=== PATIENT | male | born 1930 | race Caucasian/White ===

== ENCOUNTER 2016-11-28 12:02 | Inpatient (IN) | payer BC ==
--- NOTE | ~2016-11-28 | HP ---
History And Physical [facility] [place]. [address] NAME: ASHLYN FAN : 31 STATUS : ADM IN PAT#: [id number] AGE: 86 ADM/REG DATE : 11/28/16 MR#: [id number] REPORT SERV DATE: 11/28/16 DICTATED BY: ETTA MEDINA DATE: 11/28/16 REPORT STATUS : Draft TRANSCRIBED BY: MODL DATE: 11/28/16 DATE OF ADMISSION: 11/28/2016 CHIEF COMPLAINT: Confusion, weakness, arthralgia, myalgia that is going on for more than one week. HISTORY OF PRESENT ILLNESS: This is a very pleasant 86-year-old gentleman, patient of Dr. Peter Weller, his primary care provider, who has been diagnosed about one year ago by his primary care provider, at that time, Dr. Mary Jane Chahal, with Parkinson disease and dementia. He also has a history of hypertension, history of BPH, hyperlipidemia, degenerative joint disease, osteoarthritis who has been presenting today accompanied by his to [facility] with progressive weakness, encephalopathy. It is important to note that patient has a progressive deterioration of functional status over the last year. He does have dementia which has progressively worse as well as Parkinson disease, but he has been able to get around the house and move despite his unsteady gait; however, for about one week or so, patient has become much more progressively worse, much more weaker, very hard to mobilize, in fact, more confused than usual. He went with his on Monday to [facility]. At that time, he had a complete workup including a CT of the brain which essentially was negative. In the emergency room, they wanted patient to be admitted; however, the wanted to take the patient home to follow up with his primary care provider today. However, today he woke up and he was so weak that actually slid out of the bed and as a result the family needed to call the paramedics to bring him to [facility]. The patient is fairly confused. He is alert and oriented x1. He actually denies any complaints of chest pain or shortness of breath. No PND or orthopnea. No fever. No nausea, vomiting, but he complains of joint pain. He did not have any hematemesis, melena, hematochezia. No increased urinary frequency, urgency. No seizure-like activity. No other complaints. Patient has been evaluated in the emergency room and after speaking with Neurology, Hospitalist Service has admitted the patient for further evaluation and treatment. It is important also to note that despite the fact that patient has been diagnosed with Parkinson disease and dementia, the treatment has been provided by his primary care provider. He has never seen a neurologist before. PAST MEDICAL HISTORY: So again, past medical history is significant for Parkinson disease, dementia, hypertension, BPH, coronary artery disease, status post prior PTCA and stent, hyperlipidemia, degenerative joint disease, osteoarthritis. PAST SURGICAL HISTORY: Include bilateral total knee replacement. SOCIAL HISTORY: Denies tobacco. Alcohol socially. No IV drugs. ALLERGIES: HE IS ALLERGIC TO CODEINE. FAMILY HISTORY: Significant for heart disease and cancer. MEDICATIONS: At home, Lotensin, Sinemet, Aricept, Cardura, iron sulfate, alprazolam, Advil, Zocor, and Maxzide. History And Physical [address] [address] NAME: ASHLYN FAN : 31 STATUS : ADM IN [facility]#: [id number] AGE: 86 ADM/REG DATE : 11/28/16 MR#: [id number] REPORT SERV DATE: 11/28/16 DICTATED BY: ETTA MEDINA DATE: 11/28/16 REPORT STATUS : Draft TRANSCRIBED BY: TEZ DATE: 11/28/16 REVIEW OF SYSTEMS: A 14-point review of systems has been obtained and pertinent positive has been listed into the history of present illness, otherwise negative except those underlying above. PHYSICAL EXAMINATION: VITAL SIGNS: Currently, patient is afebrile. Blood pressure 178/107, heart rate 92, respiratory rate 18, saturating 97% on room air. GENERAL: He is a well-developed, well-nourished gentleman, in no acute distress. Very confused. He is alert and oriented x1. He does follow some commands. HEENT: Show pupils equal, round, reactive to light. Extraocular movements intact. No JVD. No lymphadenopathy. No thyromegaly appreciated. CHEST: Shows bilateral air entry. Clear anteroposterior. Decreased breath sounds bibasilarly. No wheezes, crackles, or rhonchi appreciated. CARDIOVASCULAR: He is regular rate and rhythm. S1, S2 positive. No S3, no S4. No murmurs, rubs, or gallops appreciated. ABDOMEN: Soft with positive bowel sounds. Nontender. No guarding. No rebound. EXTREMITIES: No clubbing, cyanosis, or edema. NEUROLOGY: Patient is alert and oriented x1. He has generalized weakness. He has tremor. He does follow some commands. Cranial nerves appear intact. Gait could not be assessed. LABORATORY DATA: Labs from today include sodium 135, potassium 4, chloride 102, CO2 of 26, BUN 5, creatinine 1.41, glucose is 104. His total bilirubin is 0.7, alkaline phosphatase 87, ALT 41, AST 26. His white count is 6.4, hemoglobin 10.6, hematocrit 31.3, platelets are 228. His INR is 1.4. His UA has been negative. The chest x-ray, portable, performed in the emergency room shows no acute cardiopulmonary abnormalities and EKG performed in the emergency room shows sinus rhythm with sinus arrhythmia and first-degree AV block, otherwise normal EKG. ASSESSMENT: This is a very pleasant, 86-year-old gentleman with: 1. Encephalopathy. 2. History of Parkinson disease and dementia. 3. Mild acute kidney injury. 4. Hypertension. 5. History of benign prostatic hypertrophy. 6. History of coronary artery disease, status post prior PTCA and stent. 7. Hyperlipidemia. PLAN: 1. Patient is going to be admitted to Hospitalist Service regarding his encephalopathy. I am going to order an MRI/MRA of the brain, place him on an aspirin. We are going to check vitamin B12 and folate, TSH and a free T4. We are going to check hemoglobin A1c. We are going to check an ammonia level. We are going to consult Dr. Pack from Neurology Service for further recommendation frequent neuro checks as well. Continue his Sinemet as well as his Aricept and p.r.n. Ativan as needed. 2. Hypertension. I am going to hold his Lotensin as well as his Maxzide today. Continue his hydralazine and provide p.r.n. hydralazine as needed. History And Physical [address] [address] NAME: ASHLYN FAN : 31 STATUS : ADM IN [facility]#: [id number] AGE: 86 ADM/REG DATE : 11/28/16 MR#: [id number] REPORT SERV DATE: 11/28/16 DICTATED BY: ETTA MEDINA DATE: 11/28/16 REPORT STATUS : Draft TRANSCRIBED BY: MODAutumn DATE: 11/28/16 3. Mild acute kidney injury. We are going to provide IV fluids. Strict I's and O's, strict daily weights. We will check spot urine for sodium, creatinine, osmolarity. We are going to check a renal ultrasound and follow the labs in the morning. 4. History of BPH. We are going to continue his home medications. 5. History of hyperlipidemia. We will continue his home medications and check a fasting lipid profile. We are going to provide reasonable pain and nausea control as well as GI and DVT prophylaxis. That has been discussed extensively with the patient. All the questions have been answered in full. Further workup and recommendation pending above. It is worthwhile to note that the patient is going to be followed by Hospitalist Service. The patient wishes to remain a full code according to patient wishes prior stated. CF/TEZ Etta Medina M.D. / [id number] CC: Peter Prado M.D.
--- NOTE | ~2016-11-28 | CN ---
Consultation Report [facility] [address] [place]. [address] NAME: ASHLYN FAN : 32 STATUS : ADM IN PAT#: [id number] AGE: 86 ADM/REG DATE : 11/28/16 MR#: [id number] REPORT SERV DATE: 11/30/16 DICTATED BY: ANGELI HERRERA DATE: 11/30/16 REPORT STATUS : Draft TRANSCRIBED BY: MODL DATE: 11/30/16 NEUROLOGY CONSULTATION DATE OF CONSULTATION: 11/30/2016 PRIMARY CARE PHYSICIANS: Peter Weller M.D. and Tacho Bang M.D. REASON FOR CONSULTATION: Progressive weakness, encephalopathy, and Parkinson disease. HOSPITALIST: Chavez Mosqueda M.D. HISTORY OF PRESENT ILLNESS: The patient is an 86-year-old male who was diagnosed with Parkinson disease and probable dementia by Dr. Bang approximately a year and a half ago. He was started on carbidopa/levodopa 25/100 mg as a trial dose and seemed to tolerate it well. The patient has struggled with bradykinesia, bradyphrenia, hypophonia, and imbalance. However, he seemed to get along fairly well until approximately a week ago. According to the patient's , his condition plummeted rapidly. He started to get very agitated and confused and was unable to even stand. In fact, the patient's stated that one day he just slid out of his chair to the floor. This concerned her greatly, so she brought him to the hospital for further evaluation and treatment. The patient was diagnosed with a urinary tract infection and has been placed on antibiotics. It was also noted that the patient had difficulty swallowing and underwent a swallow study test today. The patient has been agitated. According to the , he does have at least one glass of wine on a daily basis and has done so for many years. He has not had any alcoholic beverages since admission, and this is day 3. PAST MEDICAL HISTORY: Parkinson disease; probable dementia; hypertension; hyperlipidemia; coronary artery disease, status post stent placement; degenerative joint disease; osteoarthritis. PAST SURGICAL HISTORY: Bilateral total knee replacements and lumbar surgery. HOME MEDICATION LIST: Consists of Lotensin 40 mg daily, Sinemet 25/100 mg daily, Aricept 5 mg daily, Cardura 4 mg daily, ferrous sulfate 325 mg daily, hydralazine 50 mg twice a day, Advil p.r.n., Zocor 40 mg daily, and Maxzide 37.5/25 mg daily. ALLERGIES: CODEINE. SOCIAL HISTORY: The patient is . He lives at home with his . He is retired. He quit smoking 25 years ago. He has a glass of wine every day. He does not use illicit drugs. FAMILY HISTORY: His mother had breast cancer. His father of coronary artery disease. Consultation Report [address] [place]. [address] NAME: ASHLYN FAN : 32 STATUS : ADM IN PAT#: [id number] AGE: 86 ADM/REG DATE : 11/28/16 MR#: [id number] REPORT SERV DATE: 11/30/16 DICTATED BY: ANGELI HERRERA DATE: 11/30/16 REPORT STATUS : Draft TRANSCRIBED BY: TEZ DATE: 11/30/16 He has one brother who had colon cancer. He has one daughter who has colon cancer and liver cancer and a son with colon cancer. REVIEW OF SYSTEMS: For pertinent positives, please refer to HPI. PHYSICAL EXAMINATION: GENERAL: The patient is an 86-year-old male who is slightly febrile with a temperature of 99 degrees, heart rate 94, respiratory rate 16, O2 saturations on 2 L nasal cannula 95%, and blood pressure is 180/91. The patient stands 6 feet 1 inch tall and weighs 101 kg. NEUROLOGICAL: He is somewhat drowsy but will arouse to verbal stimuli. Pupils are 2 mm. PERRLA. Cranial nerves appear to be intact. He is hypophonic and hard of hearing. He will follow a few simple commands but communication is poor at this time. He does have a rest tremor. Does have slight myoclonus and asterixis. Rigidity in the upper extremities. Some cogwheeling noted. He is also rigid in the lower extremities. The patient is unable to get up and ambulate at this time. He is very weak. He is a total assist. NECK: No carotid bruits, JVD, or thyromegaly. CHEST: Lung sounds relatively clear. Diminished in the bases. CARDIAC: Regular rate and rhythm. LABORATORY DATA: CBC is normal. BMP normal. Sedimentation rate is 100. A1c 5.6. Ammonia 25. INR 1.4. MRI of the brain shows no acute changes. ASSESSMENT/PLAN: 1. Parkinson disease. The patient's Sinemet will be increased to t.i.d. dosing. He will be taking the 25/100 mg at 8:00 a.m., 12 noon, and 4:00 p.m. He will be taking that with food but not food containing protein. PT, OT, and Speech Therapy have been consulted. We are waiting on his swallow study tests results. The patient will be either going to rehab or hospice. 2. Dementia. Supportive care will be given to the family and the patient. We will check further lab work. 3. Daily alcohol use. The patient could possibly be starting to go through withdrawal. I will institute the CIWA protocol. He will be placed on thiamine 100 mg daily plus folate 1 mg daily. Thank you again for including us in consultation. We will follow with you. DARIEL/TEZ Angeli Herrera DNP, [facility]- / [id number] Consultation Report [address] [address] NAME: ASHLYN FAN : 32 STATUS : ADM IN [facility]#: [id number] AGE: 86 ADM/REG DATE : 11/28/16 MR#: [id number] REPORT SERV DATE: 11/30/16 DICTATED BY: ANGELI HERRERA DATE: 11/30/16 REPORT STATUS : Draft TRANSCRIBED BY: TEZ DATE: 11/30/16 CC: MD Peter Oneil M.D.
--- NOTE | ~2016-11-28 | DS ---
Discharge Summary [facility] [address] [place]. [address] NAME: ASHLYN FAN : 32 STATUS : DIS IN PAT#: [id number] AGE: 86 ADM/REG DATE : 11/28/16 MR#: [id number] REPORT SERV DATE: 12/02/16 DICTATED BY: SONJA BOYLE DATE: 12/02/16 REPORT STATUS : Draft TRANSCRIBED BY: MODL DATE: 12/02/16 ADMISSION DATE: 11/28/2016 DISCHARGE DATE: 12/02/2016 Mr. Fan is an 86-year-old gentleman with a history of Parkinson disease, hypertension, who was brought out to the emergency room by his with a complaint of confusion, weakness, arthralgia, and myalgia. For further details, please refer to H and P dictated by Dr. Will on 11/28/2016. HOSPITAL COURSE: Upon presentation to the hospital, the patient was diagnosed with encephalopathy, admitted on the Hospitalist Service for further management. Given his presenting complaints, Neurology was also consulted. For further details, please refer to consultation note dictated by Angeli Soliman on 11/30/2016. It was noted that the patient for his Parkinson disease had not followed up with Neurology, and he was on carbidopa and levodopa at suboptimal doses. The patient was placed on optimal doses by Neurology with significant improvement. Prior to initiation of therapy, the patient had a complete infectious workup which came back negative. He had brain imaging which noted no acute abnormality. Status post placed the patient on the right dose of carbidopa and levodopa, the patient's symptoms significantly improved. However, per goals of care, given the prognosis of the disease, the patient's opted to place the patient in hospice. Hospice service has been consulted. The patient has been accepted to hospice and will be transitioning to hospice today. Plan has been discussed with the who voices understanding and is agreeable with this plan. DISCHARGE DIAGNOSES: 1. Parkinson's disease. 2. Dementia with Lewy body. 3. Hypertension. 4. Acute kidney injury. 5. Benign prostatic hypertrophy. 6. Obstructive sleep apneas. 7. Coronary artery disease. Medication reconciliation and further management will be deferred to hospice service per hospice service policy. IMAGIN. A CT brain without contrast. Impression:. a. No acute intracranial abnormality identified at this time. b. Moderate cortical volume loss and findings compatible with mild to moderate chronic deep white matter ischemic changes. 2. MRI brain. Impression:. a. Stable moderate to marked global atrophy. No acute infarct or bleed. There is ventriculomegaly. No shift. 3. Renal ultrasound. Impression:. a. Negative renal ultrasound. Discharge Summary [address] [place]. [address] NAME: ASHLYN FAN : 32 STATUS : DIS IN PAT#: [id number] AGE: 86 ADM/REG DATE : 11/28/16 MR#: [id number] REPORT SERV DATE: 12/02/16 DICTATED BY: SONJA BOYLE DATE: 12/02/16 REPORT STATUS : Draft TRANSCRIBED BY: TEZ DATE: 12/02/16 4. Swallowing study. Impression:. a. Vallecular pooling prior to swallows. b. Oral vallecular and piriform sinus residue following swallows. c. No evidence of aspiration or penetration during exam. DISPOSITION: The patient will be discharged to hospice. Greater than 30 minutes was spent providing counseling, coordinating discharge. DICTATED BY: MD PADMINI Oneil/TEZ Sonja Boyle MD / [id number] CC: MD Peter Oneil M.D.
[2016-11-28 11:30] LABS: BASOPHILS 0.2 %; BASOPHILS ABSOLUTE 0.01 10/3/uL (0.0-0.16); EOSINOPHILS 0.8 %; EOSINOPHILS ABSOLUTE 0.05 10/3/uL (0.0-0.53); ER CBC TAT 0 Hrs 05 Mins; HEMATOCRIT 31.3 % (40.0-51.0); HEMOGLOBIN 10.6 g/dL (13.6-17.8); IMMATURE GRANULOCYTES 0.3 %; IMMATURE GRANULOCYTES ABSOLUTE 0.02 10/3/uL (0.0-0.11); LYMPHOCYTES 15.7 %; MEAN CORPUS HGB CONC 33.9 g/dL (32.0-36.0); MEAN CORPUSCULAR HEMOGLOB 31.8 pg (26.0-34.0); MEAN PLATELET VOLUME 9.7 fL (9.2-13.0); MONOCYTES 12.1 %; MONOCYTES ABSOLUTE 0.77 10/3/uL (0.21-1.20); NEUTROPHILS 70.9 %; NEUTROPHILS ABSOLUTE 4.51 10/3/uL (2.02-8.40); PLATELET COUNT 228 10/3/uL (150-400); RBC DISTRIBUTION WIDTH 12.9 % (12.0-16.0); RED CELL COUNT 3.33 10/6/uL (4.7-6.1); WHITE BLOOD CELLS 6.4 10/3/uL (4.5-10.5)
[2016-11-28 11:33] LABS: MANUAL DIFF NO %
[2016-11-28 11:37] LABS: INTERNATIONAL NORMAL RATI 1.4 UNITS (-); PROTIME (NOT ORD) 16.6 SEC (12.0-14.5)
[2016-11-28 11:38] LABS: PARTIAL THROMBO TIME 34.7 SEC (22.5-37.2)
[2016-11-28 11:47] LABS: CHLORIDE, SERUM 102 MMOL/L (96-112); CO2 (CARBON DIOXIDE) 26 MMOL/L (24-34); CREATININE 1.41 MG/DL (0.70-1.30); GFR AFRICAN AMERICAN 52 ML/MIN (>=60); GFR NON AFRICAN AMERICAN 45 ML/MIN (>=60); GLUCOSE, SERUM 104 MG/DL (60-99); SGOT(AST) 26 U/L (5-40); SGPT(ALT) 41 U/L (5-65); SODIUM, SERUM 135 MMOL/L (135-148); TOTAL BILIRUBIN 0.7 MG/DL (0-1.2)
[2016-11-28 11:48] LABS: A/G RATIO 0.8 (0.7-1.9); ALKALINE PHOSPHATASE 87 U/L (45-117); BUN (BLOOD UREA NITROGEN) 50 MG/DL (6-23)
[~2016-11-28 12:02] MED LIST: ADVIL PM1 CAP PO; APRES50 PO; ARICEPT5 PO; CARDU4 PO; FERROUS SULF325 M1 PO; LOTE40 PO; MAX25 PO; SIN25 PO; ZOCOR40 PO
[2016-11-28 12:51] LABS: ASCORBIC ACID (UR NOT ORDER) 20 (NEG); BILIRUBIN, URINE NEGATIVE (NEG); ER URINALYSIS TAT 0 Hrs 09 Mins; KETONE, URINE NEGATIVE (NEG); LEUKOCYTE ESTERASE(NOT OR NEG (NEG); NITRITE (URINE) NEG (NEG); WBC (NOT ORDERED) (RFLEX) 1 (0-5)
[2016-11-28 18:34] LABS: CREATININE, URINE 88.8 MG/DL
[2016-11-28 19:00] LABS: FERRITIN 304 NG/ML (26-388); IRON BINDING CAPACITY 179 MCG/DL (250-450)
[2016-11-28 19:01] LABS: FOLATE 42.6 NG/ML (>5.2)
[2016-11-28 19:08] LABS: PROCALCITONIN 0.05 ng/mL (<0.5)
[2016-11-28 19:31] LABS: CPK 91 U/L (0-200)
[2016-11-28 19:32] LABS: CK-MB 2.4 NG/ML; TROPONIN I 0.06 NG/ML (<0.05)
[2016-11-28 20:17] LABS: B NATRIURETIC PEPTIDE (BNP) 197.6 PG/ML (< 100.0)
[2016-11-29 03:23] LABS: BASOPHILS 0.1 %; BASOPHILS ABSOLUTE 0.01 10/3/uL (0.0-0.16); EOSINOPHILS ABSOLUTE 0.07 10/3/uL (0.0-0.53); HEMOGLOBIN 9.9 g/dL (13.6-17.8); IMMATURE GRANULOCYTES 0.1 %; IMMATURE GRANULOCYTES ABSOLUTE 0.01 10/3/uL (0.0-0.11); LYMPHOCYTES 16.9 %; LYMPHOCYTES ABSOLUTE 1.13 10/3/uL (0.67-4.30); MEAN CORPUS HGB CONC 34.1 g/dL (32.0-36.0); MEAN CORPUSCULAR HEMOGLOB 32.6 pg (26.0-34.0); MEAN CORPUSCULAR VOLUME 95.4 fL (80-100); MEAN PLATELET VOLUME 9.8 fL (9.2-13.0); MONOCYTES 12.5 %; MONOCYTES ABSOLUTE 0.84 10/3/uL (0.21-1.20); NEUTROPHILS 69.4 %; NEUTROPHILS ABSOLUTE 4.64 10/3/uL (2.02-8.40); PLATELET COUNT 222 10/3/uL (150-400); RBC DISTRIBUTION WIDTH 12.6 % (12.0-16.0); RED CELL COUNT 3.04 10/6/uL (4.7-6.1); WHITE BLOOD CELLS 6.7 10/3/uL (4.5-10.5)
[2016-11-29 03:24] LABS: MANUAL DIFF NO %
[2016-11-29 03:41] LABS: A/G RATIO 0.7 (0.7-1.9); ALBUMIN 2.5 G/DL (3.5-5.0); CALCIUM, SERUM 8.4 MG/DL (8.5-10.4); CHLORIDE, SERUM 102 MMOL/L (96-112); CO2 (CARBON DIOXIDE) 26 MMOL/L (24-34); CPK 79 U/L (0-200); CREATININE 1.14 MG/DL (0.70-1.30); GFR AFRICAN AMERICAN 68 ML/MIN (>=60); GFR NON AFRICAN AMERICAN 58 ML/MIN (>=60); GLOBULIN 3.5 G/DL (2.5-4.1); GLUCOSE, SERUM 112 MG/DL (60-99); POTASSIUM, SERUM 3.8 MMOL/L (3.5-5.3); SGOT(AST) 20 U/L (5-40); SGPT(ALT) 13 U/L (5-65); SODIUM, SERUM 135 MMOL/L (135-148); TOTAL BILIRUBIN 0.6 MG/DL (0-1.2); TRIGLYCERIDE 50 MG/DL (< 150)
[2016-11-29 03:42] LABS: ALKALINE PHOSPHATASE 71 U/L (45-117); BUN (BLOOD UREA NITROGEN) 36 MG/DL (6-23); CHOL/HDL RATIO(NOT ORDER) 2.2 (0-5); CHOLESTEROL 78 MG/DL (< 200); CK-MB 2.2 NG/ML; HDL CHOLESTEROL 35 MG/DL (> 39); LDL CHOLESTEROL 33 MG/DL (< 130); NON-HDL CHOLESTEROL 43 MG/DL (< 160); TROPONIN I 0.05 NG/ML (<0.05)
[2016-11-29 20:44] LABS: ASCORBIC ACID (UR NOT ORDER) NEG (NEG); BILIRUBIN, URINE NEGATIVE (NEG); KETONE, URINE NEGATIVE (NEG); LEUKOCYTE ESTERASE(NOT OR TRACE (NEG); WBC (NOT ORDERED) (RFLEX) 11 (0-5)
[2016-11-29 21:51] LABS: GLYCOHEMOGLOBIN (HbA1c) 5.6 % (4.7-6.1)
[2016-11-30 05:53] LABS: BASOPHILS 0.2 %; BASOPHILS ABSOLUTE 0.01 10/3/uL (0.0-0.16); EOSINOPHILS 2.5 %; EOSINOPHILS ABSOLUTE 0.16 10/3/uL (0.0-0.53); HEMATOCRIT 29.3 % (40.0-51.0); HEMOGLOBIN 9.9 g/dL (13.6-17.8); IMMATURE GRANULOCYTES 0.3 %; IMMATURE GRANULOCYTES ABSOLUTE 0.02 10/3/uL (0.0-0.11); LYMPHOCYTES 17.7 %; LYMPHOCYTES ABSOLUTE 1.12 10/3/uL (0.67-4.30); MANUAL DIFF NO %; MEAN CORPUS HGB CONC 33.8 g/dL (32.0-36.0); MEAN CORPUSCULAR HEMOGLOB 32.2 pg (26.0-34.0); MEAN CORPUSCULAR VOLUME 95.4 fL (80-100); MEAN PLATELET VOLUME 9.8 fL (9.2-13.0); MONOCYTES 16.8 %; MONOCYTES ABSOLUTE 1.06 10/3/uL (0.21-1.20); NEUTROPHILS 62.5 %; NEUTROPHILS ABSOLUTE 3.95 10/3/uL (2.02-8.40); PLATELET COUNT 223 10/3/uL (150-400); RBC DISTRIBUTION WIDTH 12.4 % (12.0-16.0); RED CELL COUNT 3.07 10/6/uL (4.7-6.1); WHITE BLOOD CELLS 6.3 10/3/uL (4.5-10.5)
[2016-11-30 06:06] LABS: A/G RATIO 0.7 (0.7-1.9); ALBUMIN 2.5 G/DL (3.5-5.0); ALKALINE PHOSPHATASE 69 U/L (45-117); CALCIUM, SERUM 8.4 MG/DL (8.5-10.4); CHLORIDE, SERUM 100 MMOL/L (96-112); CO2 (CARBON DIOXIDE) 28 MMOL/L (24-34); CREATININE 1.04 MG/DL (0.70-1.30); GFR AFRICAN AMERICAN 76 ML/MIN (>=60); GFR NON AFRICAN AMERICAN 65 ML/MIN (>=60); GLOBULIN 3.7 G/DL (2.5-4.1); GLUCOSE, SERUM 102 MG/DL (60-99); POTASSIUM, SERUM 3.8 MMOL/L (3.5-5.3); SGOT(AST) 18 U/L (5-40); SGPT(ALT) 21 U/L (5-65); SODIUM, SERUM 134 MMOL/L (135-148); TOTAL BILIRUBIN 0.5 MG/DL (0-1.2); TOTAL PROTEIN 6.2 G/DL (6.0-8.5)
[2016-11-30 06:09] LABS: BUN (BLOOD UREA NITROGEN) 24 MG/DL (6-23)
[2016-12-01 05:06] LABS: CALCIUM, SERUM 8.6 MG/DL (8.5-10.4); CHLORIDE, SERUM 101 MMOL/L (96-112); CO2 (CARBON DIOXIDE) 27 MMOL/L (24-34); CREATININE 0.98 MG/DL (0.70-1.30); GFR AFRICAN AMERICAN 81 ML/MIN (>=60); GFR NON AFRICAN AMERICAN 70 ML/MIN (>=60); GLUCOSE, SERUM 105 MG/DL (60-99); POTASSIUM, SERUM 3.8 MMOL/L (3.5-5.3); SODIUM, SERUM 135 MMOL/L (135-148)
[2016-12-01 05:08] LABS: BUN (BLOOD UREA NITROGEN) 19 MG/DL (6-23)
[2016-12-02 04:32] LABS: BASOPHILS 0.2 %; BASOPHILS ABSOLUTE 0.01 10/3/uL (0.0-0.16); EOSINOPHILS ABSOLUTE 0.25 10/3/uL (0.0-0.53); HEMOGLOBIN 10.2 g/dL (13.6-17.8); IMMATURE GRANULOCYTES 0.3 %; IMMATURE GRANULOCYTES ABSOLUTE 0.02 10/3/uL (0.0-0.11); LYMPHOCYTES 17.5 %; MEAN CORPUSCULAR HEMOGLOB 32.3 pg (26.0-34.0); MEAN CORPUSCULAR VOLUME 94.9 fL (80-100); MEAN PLATELET VOLUME 10.2 fL (9.2-13.0); MONOCYTES 15.3 %; MONOCYTES ABSOLUTE 0.96 10/3/uL (0.21-1.20); NEUTROPHILS 62.7 %; NEUTROPHILS ABSOLUTE 3.93 10/3/uL (2.02-8.40); PLATELET COUNT 247 10/3/uL (150-400); RBC DISTRIBUTION WIDTH 12.3 % (12.0-16.0); RED CELL COUNT 3.16 10/6/uL (4.7-6.1); WHITE BLOOD CELLS 6.3 10/3/uL (4.5-10.5)
[2016-12-02 04:34] LABS: MANUAL DIFF NO %
[2016-12-02 04:49] LABS: A/G RATIO 0.6 (0.7-1.9); ALBUMIN 2.4 G/DL (3.5-5.0); BUN (BLOOD UREA NITROGEN) 19 MG/DL (6-23); CALCIUM, SERUM 8.7 MG/DL (8.5-10.4); CHLORIDE, SERUM 99 MMOL/L (96-112); CO2 (CARBON DIOXIDE) 27 MMOL/L (24-34); CREATININE 1.14 MG/DL (0.70-1.30); GFR AFRICAN AMERICAN 68 ML/MIN (>=60); GFR NON AFRICAN AMERICAN 58 ML/MIN (>=60); GLUCOSE, SERUM 110 MG/DL (60-99); POTASSIUM, SERUM 3.8 MMOL/L (3.5-5.3); SGOT(AST) 23 U/L (5-40); SGPT(ALT) 21 U/L (5-65); SODIUM, SERUM 134 MMOL/L (135-148); TOTAL BILIRUBIN 0.4 MG/DL (0-1.2); TOTAL PROTEIN 6.4 G/DL (6.0-8.5)
[2016-12-02 04:53] LABS: ALKALINE PHOSPHATASE 95 U/L (45-117)
== END 2016-12-02 16:30 | disposition hospice, home (50) | DRG 56 ==
LOC: ER 12:02 → 5NO 16:09
PROVIDERS: Hospitalist; Internal Medicine; Nurse Practitioner Family
DX: G20 Parkinson's disease (principal); G93.41 Metabolic encephalopathy; N17.9 Acute kidney failure, unspecified; F02.80 Dementia in other diseases classified elsewhere, unspecified severity, without behavioral disturbance, psychotic disturbance, mood disturbance, and anxiety; I10 Essential (primary) hypertension; N40.0 Benign prostatic hyperplasia without lower urinary tract symptoms; E78.5 Hyperlipidemia, unspecified; Z95.5 Presence of coronary angioplasty implant and graft; Z96.653 Presence of artificial knee joint, bilateral; I25.10 Atherosclerotic heart disease of native coronary artery without angina pectoris; E66.9 Obesity, unspecified; Z68.30 Body mass index [BMI] 30.0-30.9, adult; G47.33 Obstructive sleep apnea (adult) (pediatric)
CPT/HCPCS: 70450; 70551-52; 71010; 74230; 76775; 80048; 80053; 80061; 81001; 82140; 82550; 82553; 82570; 82607; 82728; 82746; 82962; 83036; 83550; 83615; 83735; 83880; 83935; 84100; 84145; 84300; 84484; 85025; 85610; 85652; 85730; 87040; 92611-GN; 93005; 97110-GP; 97116-GP; 97162-GP; 97166-GO; 97535-GO; 99285; A9270-GY; C8929; G8978-CL-GP; G8979-CK-GP; J0360; J3411; Q9957